=== PATIENT | male | born 1960 | race Two or more races ===

== ENCOUNTER 2019-02-19 14:12 | Inpatient (IN) | payer MEDICAID ==
[~2019-02-19] VITALS: Ht 180.3 cm; Wt 94.8 kg
[2019-02-19] MEDS ORDERED: SODIUM CHLORIDE 0.9% 1,000 ML IV ONE (15:06)
[2019-02-19] MEDS ORDERED: NITROGLYCERIN 0.4MG TABLET SL SL PRN (15:15)
[2019-02-19] MEDS ORDERED: ASPIRIN 81MG TABLET PO ONE (15:15)
[2019-02-19 15:38] LABS: BASOPHILS % 0.5 % (0.0-2.0); EOSINOPHILS % 0.1 % (0.0-5.0); HEMATOCRIT. 38.4 % (42.0-52.0); HEMOGLOBIN. 12.2 g/dL (14.0-18.0); LYMPHOCYTES % 21.7 % (20.0-50.0); MEAN CORPUSCULAR HEMOGLOBIN 22.7 pg (28.0-32.0); MEAN CORPUSCULAR VOLUME 71.4 fL (80.0-94.0); MEAN PLATELET VOLUME 7.3 fl (7.4-10.4); NEUTROPHILS % 71.7 % (40.0-76.0); PLATELET 386 x1000/uL (130-400); RED BLOOD CELL COUNT 5.39 mill/uL (4.7-6.1); RED CELL DISTRIBUTION WIDTH 19.2 % (11.6-14.6)
[2019-02-19 15:40] LABS: CHLORIDE 106 mEq/L (98-107)
[2019-02-19 15:43] LABS: ETHANOL BLOOD 46 mg/dL
[2019-02-19 15:44] LABS: D-DIMER < 0.19 mg/L FEU (<0.50); PARTIAL THROMBOPLASTIN TIME 32.3 sec (23.4-31.0); PROTHROMBIN TIME 10.5 sec (9.6-11.0)
[2019-02-19 16:31] LABS: CLARITY URINE CLEAR (CLEAR); COLOR URINE YELLOW (YELLOW); KETONES URINE 1+ (NEGATIVE); LEUKOCYTE ESTERASE URINE NEGATIVE (NEGATIVE); NITRITE URINE NEGATIVE (NEGATIVE); OCCULT BLOOD URINE NEGATIVE (NEGATIVE); PROTEIN URINE 1+ (NEGATIVE); SPECIFIC GRAVITY URINE 1.024 (1.005-1.030)
[2019-02-19 16:51] LABS: *AMPHETAMINES SCREEN URINE NEGATIVE (NEGATIVE); *BARBITURATES SCREEN URINE NEGATIVE (NEGATIVE); *BENZODIAZEPINES SCREEN URINE NEGATIVE (NEGATIVE); *COCAINE SCREEN URINE PRESUMTIVE POSITIVE (NEGATIVE); CANNABINOID URINE SCREEN NEGATIVE (NEGATIVE); METHADONE URINE SCREEN NEGATIVE (NEGATIVE); OPIATES URINE SCREEN NEGATIVE (NEGATIVE); PHENCYCLIDINE URINE SCREEN NEGATIVE (NEGATIVE)
[2019-02-19] MEDS ORDERED: CEFTRIAXONE 1 G PREMIX 50 ML IV SCH (20:45)
[2019-02-19] MEDS ORDERED: DOCUSATE SODIUM 100MG CAPSULE PO PRN (20:45)
[2019-02-19] MEDS ORDERED: ONDANSETRON HCL 4MG/2ML INJ IV PRN (20:45)
[2019-02-19] MEDS ORDERED: CLONIDINE 0.1MG TABLET PO PRN (20:45)
[2019-02-19] MEDS ORDERED: GUAIFENESIN 200MG/10ML SUGAR FREE UDC PO PRN (20:45)
[2019-02-19] MEDS ORDERED: MAGNESIUM/ALUMINUM HYDROXIDE/SIMETHICONE 30ML UDC PO PRN (20:45)
[2019-02-19] MEDS ORDERED: IPRATROPIUM/ALBUTEROL 0.5-3(2.5)MG/3ML NEB INH PRN (20:45)
[2019-02-19] MEDS ORDERED: DIPHENHYDRAMINE 50MG/ML VIAL IV PRN (20:45)
[2019-02-19 21:00] LABS: PHOSPHORUS 3.2 mg/dL (2.5-4.9)
[2019-02-19] MEDS ORDERED: CEFTRIAXONE 1 G PREMIX 50 ML IV NR (23:00)
[2019-02-20 08:00] VITALS: BP 144/94
[2019-02-20] MEDS: ENOXAPARIN 40MG/0.4ML SYR SUBCUT SCH (10:17)
[2019-02-20 10:26] VITALS: BP 144/94
[2019-02-20] MEDS: SODIUM CHLORIDE 0.9% 1,000 ML IV SCH ×3 (10:45→17:10)
[2019-02-20 12:00] VITALS: BP 107/59
[2019-02-20] MEDS: ACETAMINOPHEN 325MG TABLET PO PRN (12:17)
[2019-02-20] MEDS ORDERED: PNEUMOCOCCAL 23-VAL P-SAC VAC 0.5 ML IM ONE (12:30)
[2019-02-20 13:30] LABS: BASOPHILS % 0.8 % (0.0-2.0); EOSINOPHILS % 0.8 % (0.0-5.0); HEMATOCRIT. 37.4 % (42.0-52.0); HEMOGLOBIN. 11.8 g/dL (14.0-18.0); LYMPHOCYTES % 37.5 % (20.0-50.0); MEAN CORPUSCULAR HEMOGLOBIN 22.6 pg (28.0-32.0); MEAN CORPUSCULAR VOLUME 71.7 fL (80.0-94.0); MEAN PLATELET VOLUME 7.5 fl (7.4-10.4); MONOCYTES % 9.3 % (2.0-8.0); NEUTROPHILS % 51.6 % (40.0-76.0); PLATELET 360 x1000/uL (130-400); RED BLOOD CELL COUNT 5.23 mill/uL (4.7-6.1); RED CELL DISTRIBUTION WIDTH 19.6 % (11.6-14.6)
[2019-02-20] MEDS: FLUOXETINE HCL 20MG CAPSULE PO SCH (13:42)
[2019-02-20] MEDS: GABAPENTIN 300MG CAPSULE PO SCH (13:42)
[2019-02-20] MEDS: AMLODIPINE 10MG TABLET PO SCH (13:42)
[2019-02-20 13:45] LABS: CHLORIDE 108 mEq/L (98-107)
[2019-02-20 13:53] LABS: HDL CHOLESTEROL 40 mg/dL (40-59); LDL CHOLESTEROL 53 mg/dL (5-100)
[2019-02-20 13:54] LABS: TOTAL IRON BINDING CAPACITY 443 ug/dL (250-450)
[2019-02-20 13:56] LABS: CREATINE KINASE 258 IU/L (39-308); CREATINE KINASE MB FRACTION 1.4 ng/mL (0.5-3.6)
[2019-02-20 16:00] VITALS: BP 137/99
[2019-02-20 20:00] VITALS: BP 151/89
[2019-02-20] MEDS: QUETIAPINE FUMARATE 100MG TABLET PO SCH (21:40)
[2019-02-20] MEDS: CEFTRIAXONE 1 G PREMIX 50 ML IV SCH (23:53)
[2019-02-21] VITALS (7 sets, daily range): BP systolic 114–145; BP diastolic 64–95
[2019-02-21] MEDS: SODIUM CHLORIDE 0.9% 1,000 ML IV SCH ×3 (07:07→20:20)
[2019-02-21] MEDS: GABAPENTIN 300MG CAPSULE PO SCH (08:08)
[2019-02-21] MEDS: AMLODIPINE 10MG TABLET PO SCH (08:08)
[2019-02-21] MEDS: FLUOXETINE HCL 20MG CAPSULE PO SCH (08:08)
[2019-02-21] MEDS: ENOXAPARIN 40MG/0.4ML SYR SUBCUT SCH (08:09)
[2019-02-21] MEDS: QUETIAPINE FUMARATE 100MG TABLET PO SCH (21:35)
[2019-02-21] MEDS: CEFTRIAXONE 1 G PREMIX 50 ML IV SCH (23:36)
[2019-02-22 04:00] VITALS: BP 129/74
[2019-02-22 08:00] VITALS: BP 132/68
[2019-02-22] MEDS: GABAPENTIN 300MG CAPSULE PO SCH (08:56)
[2019-02-22] MEDS: FLUOXETINE HCL 20MG CAPSULE PO SCH (08:56)
[2019-02-22] MEDS: AMLODIPINE 10MG TABLET PO SCH (08:56)
[2019-02-22] MEDS: ACETAMINOPHEN 325MG TABLET PO PRN (08:56)
[2019-02-22] MEDS: ENOXAPARIN 40MG/0.4ML SYR SUBCUT SCH (08:57)
[2019-02-22] MEDS: SODIUM CHLORIDE 0.9% 1,000 ML IV SCH (09:33)
[2019-02-22 12:00] VITALS: BP 139/94
[2019-02-22 16:16] VITALS: BP 141/99
== END 2019-02-22 18:18 | disposition home or self-care (01) | DRG 812 ==
LOC: ER 14:12 → 5WST 16:41 → EDBEDREQTM 16:46 → EDBEDREQ 16:46 → ENRESERV 19:02 → CANRESERV 19:02 → CANBEDREQ 02-20 01:04 → ENRESERV 02-20 07:00
PROVIDERS: ADMIT Internal Medicine; ATTEND Internal Medicine
DX: T43.212A Poisoning by selective serotonin and norepinephrine reuptake inhibitors, intentional self-harm, initial encounter (principal); R45.851 Suicidal ideations; D50.9 Iron deficiency anemia, unspecified; D72.829 Elevated white blood cell count, unspecified; F32.9 Major depressive disorder, single episode, unspecified; F17.200 Nicotine dependence, unspecified, uncomplicated; I10 Essential (primary) hypertension; F41.9 Anxiety disorder, unspecified; R07.9 Chest pain, unspecified; Y92.89 Other specified places as the place of occurrence of the external cause
CPT/HCPCS: 36415; 71045; 80061; 80305; 80307; 80320; 80329; 82550; 82553; 82728; 83540; 83550; 83735; 84100; 84443; 84484; 85379; 90732; 93005; 93970; 96361; 96365; 99285; J0696; J1650; J7030; G0480